=== PATIENT | male | born 1985 ===

== ENCOUNTER 2024-08-10 04:47 | Emergency (ER) | payer SELFPAY ==
[~2024-08-10] VITALS: Ht 177.8 cm; Wt 70.3 kg
[2024-08-10] MEDS ORDERED: Tetracaine HCl/Pf 0.5% Opth Soln 4 ml BOTHEYES ONE (05:00)
[2024-08-10] MEDS ORDERED: Ketorolac Tromethamine 30mg Vial IM ONE (05:05)
[2024-08-10] MEDS ORDERED: Fluorescein Sod 1MG Opth Strips BOTHEYES ONE (05:05)
[2024-08-10] MEDS ORDERED: Polymyxin B /Trimethoprim Opth Soln 10 ML BOTHEYES ONE (05:20)
[2024-08-10] MEDS ORDERED: RX Prepack 6 Tabs Oxycodone 5mg UD ONE (05:45)
== END 2024-08-10 06:03 | disposition home or self-care (01) ==
LOC: ER 04:47
DX: H16.133 Photokeratitis, bilateral (principal); Z78.9 Other specified health status
CPT/HCPCS: 96372; 99282-25; A9270; J1885